=== PATIENT | female | born 1975 | race Two or more races ===

== ENCOUNTER → 2017-04-15 | Outpatient (CLI) | payer OTHER | END | disposition home or self-care (01) | LOC: CFH 08:26 | PROVIDERS: ATTEND Obstetrics & Gynecology | DX: Z12.31 Encounter for screening mammogram for malignant neoplasm of breast (principal) | CPT/HCPCS: G0202 ==

== ENCOUNTER 2020-09-22 09:28 | Outpatient (CLI) | payer MEDICAID, BC ==
[2020-09-22] MEDS ORDERED: IRON PO (10:02)
[2020-09-22 10:18] LABS: BASOPHILS % (AUTO) 1 % (0-1); EOSINOPHILS % (AUTO) 5 % (1-7); LYMPHOCYTES % (AUTO) 39 % (22-44); MEAN CORPUSCULAR HEMOGLOBIN 25.5 pg (27.0-34.8); MEAN CORPUSCULAR HGB CONC 32.6 g/dL (32.4-35.8); MEAN PLATELET VOLUME 7.9 fL (7.4-10.4); MONOCYTES % (AUTO) 7 % (2-9); NEUTROPHILS % (AUTO) 48 % (42-75); PLATELET COUNT 282 x10^3/uL (130-400); RED BLOOD COUNT 4.72 x10^6/uL (3.82-5.3); RED CELL DISTRIBUTION WIDTH 20.1 % (9.6-15.2)
[2020-09-22 10:21] LABS: MD NO
[2020-09-22 10:25] LABS: ALBUMIN 3.7 g/dL (3.4-5.0); ANION GAP 7 mmol/L (5-15); CALCIUM 8.7 mg/dL (8.5-10.1); CHLORIDE 118 mmol/L (98-107)
[2020-09-22 10:31] LABS: ALANINE AMINOTRANSFERASE 21 U/L (12-78); ALKALINE PHOSPHATASE 60 U/L (45-117); BILIRUBIN,TOTAL 0.4 mg/dL (0.2-1.0); CREATININE 0.73 mg/dL (0.55-1.02); TOTAL PROTEIN 7.2 g/dL (6.4-8.2)
== END 2020-09-22 23:59 | disposition home or self-care (01) ==
LOC: STAR 09:28
PROVIDERS: ATTEND Obstetrics & Gynecology
DX: Z01.812 Encounter for preprocedural laboratory examination (principal); Z20.822 Contact with and (suspected) exposure to COVID-19; N92.0 Excessive and frequent menstruation with regular cycle
CPT/HCPCS: 36415; 80053; 84703; 85025; U0003

== ENCOUNTER 2020-09-28 09:56 | Day surgery (SDC) | payer BC, MEDICAID ==
[~2020-09-28] VITALS: Ht 157.5 cm; Wt 91.0 kg
[~2020-09-28 09:56] MED LIST: IRON PO
[2020-09-28 10:36] VITALS: BP 129/86
[2020-09-28] MEDS ORDERED: CHLORHEXIDINE 15 ML UDC ONE (10:40)
[2020-09-28] MEDS ORDERED: LACTATED RINGERS 1,000 ML IV SCH (11:00)
[2020-09-28] MEDS ORDERED: CHLORHEXIDINE 15 ML UDC PO ONE (11:00)
[2020-09-28] MEDS ORDERED: BUPIVACAINE/PF 0.25% ONE (11:01)
[2020-09-28] MEDS ORDERED: EPINEPHRINE 1 MG/ML, 1ML ONE (11:01)
[2020-09-28] MEDS ORDERED: FLUORESCEIN SODIUM 500 MG/5 ML ONE (11:01)
[2020-09-28] MEDS ORDERED: MIDAZOLAM 1 MG/ML, 2ML ONE (11:27)
[2020-09-28] MEDS ORDERED: FENTANYL PF 250 MCG/5ML ONE (11:27)
[2020-09-28] MEDS ORDERED: ACETAMINOPHEN 500 MG TABLET PO ONE (11:30)
[2020-09-28] MEDS ORDERED: DEXAMETHASONE 4 MG/ML, 1ML ONE (11:35)
[2020-09-28] MEDS ORDERED: SUCCINYLCHOLINE 20 MG/ML, 10ML ONE (11:35)
[2020-09-28] MEDS ORDERED: PROPOFOL 10 MG/ML, 20ML ONE (11:35)
[2020-09-28] MEDS ORDERED: CEFAZOLIN 1,000 MG ONE (11:35)
[2020-09-28] MEDS ORDERED: KETOROLAC 30 MG/1 ML ONE ×2 (11:35)
[2020-09-28] MEDS ORDERED: SODIUM CHLORIDE 0.9% PF 10ML ONE (11:35)
[2020-09-28] MEDS ORDERED: SUGAMMADEX 200 MG/2 ML IVPush ONE (11:35)
[2020-09-28] MEDS ORDERED: ROCURONIUM 10MG/ML,5ML ONE (11:35)
[2020-09-28] MEDS ORDERED: LIDOCAINE-MPF 2% ,5ML ONE (11:35)
[2020-09-28] MEDS ORDERED: ONDANSETRON 2MG/ML, 2ML ONE (11:35)
[2020-09-28] MEDS ORDERED: EPHEDRINE 50 MG/ML, 1ML IVPush PRN (12:00)
[2020-09-28] MEDS ORDERED: PROMETHAZINE 25 MG/ML, 1ML IVPush PRN (12:00)
[2020-09-28] MEDS ORDERED: HYDROmorphone 1 MG/ML, 1ML INJ IVPush PRN (12:00)
[2020-09-28] MEDS ORDERED: OXYcodone 5 MG/5 ML ORAL.SOL UDC PO PRN (12:00)
[2020-09-28] MEDS ORDERED: LABETALOL 5MG/ML, 20ML IV PRN (12:00)
[2020-09-28] MEDS ORDERED: hydrALAzine 20 MG/ML, 1ML IV PRN (12:00)
[2020-09-28] MEDS ORDERED: ONDANSETRON 2MG/ML, 2ML IVPush PRN (12:00)
[2020-09-28] MEDS ORDERED: GLYCOPYRROLATE 0.2MG/1ML, 5ML ONE (13:27)
[2020-09-28] MEDS: FENTANYL PF 100 MCG/2ML IV PRN ×3 (14:40→15:10)
[2020-09-28] MEDS ORDERED: FENTANYL PF 100 MCG/2ML ONE ×2 (14:43→15:04)
[2020-09-28] MEDS ORDERED: OXYcodone 5 MG/5 ML ORAL.SOL UDC ONE (14:44)
[2020-09-28 18:19] LABS: BASOPHILS % (AUTO) 0 % (0-1); EOSINOPHILS % (AUTO) 0 % (1-7); LYMPHOCYTES % (AUTO) 9 % (22-44); MEAN CORPUSCULAR HEMOGLOBIN 25.4 pg (27.0-34.8); MEAN CORPUSCULAR HGB CONC 31.6 g/dL (32.4-35.8); MEAN PLATELET VOLUME 8.2 fL (7.4-10.4); MONOCYTES % (AUTO) 2 % (2-9); NEUTROPHILS % (AUTO) 89 % (42-75); PLATELET COUNT 221 x10^3/uL (130-400); RED BLOOD COUNT 4.48 x10^6/uL (3.82-5.3); RED CELL DISTRIBUTION WIDTH 21.4 % (9.6-15.2)
[2020-09-28 18:46] LABS: MD SCAN
== END 2020-09-28 20:30 | disposition home or self-care (01) ==
LOC: OUT 09:56
PROVIDERS: ATTEND Obstetrics & Gynecology
DX: N92.0 Excessive and frequent menstruation with regular cycle (principal); D25.9 Leiomyoma of uterus, unspecified; N80.0 Endometriosis of uterus; N83.11 Corpus luteum cyst of right ovary; D50.9 Iron deficiency anemia, unspecified; G43.909 Migraine, unspecified, not intractable, without status migrainosus; Z79.899 Other long term (current) drug therapy; Z98.51 Tubal ligation status; Z98.890 Other specified postprocedural states
CPT/HCPCS: 36415; 58262; 81025; 85025; 86850; 86900; 88307; J0171; J0330; J0690; J1100; J1170; J1885; J2250; J2405; J2704; J3010; J7120